=== PATIENT | male | born 2000 | race African-American/Black ===

== ENCOUNTER 2021-10-16 11:29 | Emergency (ER) | payer OTHER, BC, SELFPAY ==
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
[2021-10-16 11:33] VITALS: BP 118/73; PULSE 60; RESP 19; TEMP 36.6; O2SAT 99; BMI 22.9
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
[2021-10-16] MEDS: Acetaminophen 325 MG TABLET 975 MG PO (12:52)
[2021-10-16] MEDS: Fluorescein Sodium STRIP 1 STRIP EYE-BOTH (12:52)
[2021-10-16] MEDS: Tetracaine HCl/PF 0.5% Oph Sol 4 ML DROPS 2 DROP EYE-BOTH (12:52)
[2021-10-16] MEDS: Diphth,Pertus(ACell),Tet Adult 0.5 ML SYRINGE IM (12:53)
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
[2021-10-16] MEDS: Erythromycin Base 0.5% Oph Oin 1 GM TUBE 1 CM EYE-LEFT (14:09)
== END 2021-10-16 14:19 | disposition home or self-care (01) ==
PROVIDERS: Emergency Provider Emergency Medicine
DX: S05.02XA Injury of conjunctiva and corneal abrasion without foreign body, left eye, initial encounter (principal); S66.912A Strain of unspecified muscle, fascia and tendon at wrist and hand level, left hand, initial encounter; M54.2 Cervicalgia; G44.309 Post-traumatic headache, unspecified, not intractable; M79.602 Pain in left arm; M79.601 Pain in right arm; V43.52XA Car driver injured in collision with other type car in traffic accident, initial encounter; Y93.9 Activity, unspecified; Y92.410 Unspecified street and highway as the place of occurrence of the external cause; Y99.9 Unspecified external cause status; Z79.899 Other long term (current) drug therapy
CPT/HCPCS: 70450; 72125; 73090; 73110; 73130; 90715; 96372; 99284

== ENCOUNTER 2021-11-22 16:00 | Outpatient (RCR) | payer OTHER, MEDICAID, SELFPAY ==
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
--- NOTE | 2021-11-25 07:04 | MHC.PT.DC ---
[facility] [place] Office [place] Office [place] Office [address] [address] [phone] F: [phone] F: [phone] F: [phone] F: [phone] Physical Therapy Discharge Report Diagnosis: strain of muscle neck level Date of Surgery: Date of Evaluation: 10/21/21 Date of Discharge: 11/25/21 Treatments to Date: 6 Cancellations to Date: 0 No Shows to Date: 0 Discharge Status: Achieved Goals Improved Function Independent with HEP Discharge Summary: Pt reports compliance with HEP, improved function and feeling better overall. He reports feeling ready for d/c. D/c at this time. Electronically signed by: Paola Chen PT Please sign and return to therapist. Thank you for your referral.
== END 2021-11-25 07:04 | disposition home or self-care (01) ==
LOC: HO.PTCHIC 16:00
PROVIDERS: Visit Provider Physician Assistant Medical
DX: S16.1XXD Strain of muscle, fascia and tendon at neck level, subsequent encounter (principal)
CPT/HCPCS: 97014; 97110; 97140; 97161

== ENCOUNTER 2024-10-14 08:39 | Outpatient (REF) | payer OTHER, MEDICAID, SELFPAY ==
--- NOTE | ~2024-10-14 | XR_ITS ---
EXAMINATION: XR KNEE, RIGHT CLINICAL INFORMATION: M25.561 - Pain in right knee COMPARISON: None available. TECHNIQUE: Three views of the right knee. FINDINGS: No fracture or joint effusion. Alignment is anatomic. Joint spaces are maintained. No abnormal soft tissue calcification. XR/XR knee RT 3V IMPRESSION: Normal right knee. Electronically signed by: Wan Delgado MD 10/15/2024 03:24 PM [facility]
== END 2024-10-14 08:40 | disposition home or self-care (01) ==
LOC: HO.HOSX 08:39
PROVIDERS: Visit Provider Orthopaedic Surgery
DX: M25.561 Pain in right knee (principal)
CPT/HCPCS: 73562

== ENCOUNTER 2024-10-14 13:58 | Outpatient (AMB) | payer OTHER, MEDICAID, SELFPAY ==
[2024-10-14 14:03] VITALS: BMI 24.4
--- NOTE | 2024-10-14 14:03 | MHC.OFFVIS ---
Vital Signs 10/14/24 14:03 Height 6 ft 2 in Weight 190 lb BMI 24.4 Intake Visit Reasons: Right knee pain and giving way Intake Note: Desiree is a 24 year old male who presents with complaints of progressively worsening right knee pain and giving way. The patient states that he injured his right knee several months ago while sparring in martial arts. The patient twisted his knee and had acute onset of pain along the medial aspect of his knee. He states that his right knee will give out several times per day. He has done physical therapy which aggravated his pain. He has also tried Tylenol, muscle relaxants and anti-inflammatory medicines which gave him minimal relief. The patient states that at this point his right knee pain and mechanical symptoms are interfering with his activities of daily living and his ability to sleep well through the night. Allergies No Known Allergies Allergy (Verified 10/14/24 14:03) Medication List - Last Reconciled 10/14/24 by Luis Enrique John MD acetaminophen (Tylenol Extra Strength) 1,000 mg (2 x 500 mg) PO QID PRN cyclobenzaprine 5 mg PO Q8H PRN erythromycin 0.5 inches ophthalmic (eye) QID 7 days PFSH Social History Alcohol intake: unknown Patient Tobacco Use Status: Never used Tobacco Physical Exam Vital Signs: BMI result Body Mass Index 24.4 Const Other: Well-nourished well-developed very friendly male awake alert and oriented x3 in no acute distress Extrem Other: Bilateral lower extremity examination shows good capillary refill, no skin lesions noted, normal sensation light touch Right knee examination shows a minimal effusion, minimal crepitus with range of motion tenderness along his medial joint line, positive Sofya's test, no instability Results Reviewed Results Reviewed: Standing full weight-bearing x-rays of the patient's right knee show minimal joint space narrowing, no acute bony abnormalities Assessment & Plan Assessment & Plan (1) Tear of medial meniscus of right knee: Code(s): S83.241A - Other tear of medial meniscus, current injury, right knee, initial encounter Category: Medical Plan Mr. Riley presents with progressively worsening right knee pain and mechanical symptoms most likely due to a medial meniscus tear. Thus, I will send the patient for an MRI of his right knee for further evaluation. I will see him back once the MRI is completed to discuss the findings and treatment options. He will continue with his activity modifications in the meantime. I spent 21 minutes in reviewing the patient's records and imaging studies, seeing the patient and documenting in the medical record. Orders: Orders XR knee RT 3V Today M25.561 - Pain in right knee MR knee RT wo con Today S83.241A - Other tear of medial meniscus, current injury, right knee, initial encounter Coding Level of Care Code New Pt Level 3 (01872) Complex EM visit Add On G2211 Diagnoses Tear of medial meniscus of right knee S83.241A
--- OUTSIDE RECORDS SUMMARY | 2024-10-14 14:55 | XMS_ITS | Data Portability ---
Author Organization [facility] [id number] Address [address] [place] [address] Assessment No assessment recorded. Plan of Treatment Reminders Order Date Submit Date Provider Last Modified By Organization Details Last Modified Time Details Appointments None record ed. Lab None record ed. Referral None record ed. Procedures None record ed. Surgeries None record ed. Imaging None record ed. Medication Orders None record ed. Patient TargetsNo targets recorded. Patient InstructionsNo instructions recorded. Reason for Referral None Reported. Problems No Known Problems Procedures Surgical History Date Name Laterality Status Provider Name and Address Organization Details Recorded Time OC- Physical completed Leon Jeffries [employer] 04/17/2024 12:35:24 Imaging Results None recorded. Procedure Notes None recorded. Medical Equipment None Reported. Allergies No known drug allergies Medications Not known to be on any medication Vitals None Recorded Social History Question Answer Notes LastModified by Organizat ion Details LastModified Time Tobacco Smoking Status Never Smoker [facility] [employer] 04/17/2024 12:32:21 What Is Your Level Of Alcohol Consumption? Occasional Information not available 04/17/2024 Have You Had A Flu Shot This Season? No Information not available 04/17/2024 Do You Use Any Illicit Or Recreational Drugs? No Information not available 04/17/2024 Have You Recently Traveled Abroad? No Information not available 04/17/2024 Do You Or Have You Ever Used Any Other Forms Of Tobacco Or Nicotine? No Information not available 04/17/2024 Sex: Unknown Functional Status None recorded. Mental Status None recorded. Family History Relationship Description Onset Age of this Age Resolved Age Notes LastModified by Organization Details LastModified Time Father No current problems or disability Not available 04/17 12:31:57 Mother No current problems or disability Not available 04/17 12:31:57 Medical History No medical history recorded. Past Encounters Encounter ID Performer Location Encounter Start Date Encounter Closed Date Diagnosis/Indication Diagnosis SNOMED-CT Code Diagnosis ICD10 Code Diagnosis Note [id number] [address] [place] [address] 12/22/2019 14:32:09 12/22/2019 15:37:27 [id number] [address] [place] [address] 06/06/2019 19:54:32 06/06/2019 20:26:12 [id number] [address] [place] [address] 12/27/2021 12:47:58 12/27/2021 16:23:40 [id number] [address] [place] [address] 11/25/2019 15:33:01 11/25/2019 17:04:59 [id number] MESERET AMBRIZ NP [address] [place] [address] 04/17/2024 12:22:16 04/17/2024 13:15:18 Physical examination [id number] Z04.9 Health Concerns Section Related Observation LastModified by Organization Detai ls LastModified Time None Recorded Concern Status LastModified by Organization Details LastModified Time None Recorded Advance Directives Directive None Recorded Payers Encounter Date Sequence Insurance Name Policy Number Policy Reddy Covered Member ID Reddy Member ID Guarantor Name 04/17/2024 OC-PAY AT TIME OF SERVICE 2022 Desiree Villagran
== END 2024-10-14 14:27 | disposition home or self-care (01) ==
PROVIDERS: Visit Provider Orthopaedic Surgery
DX: S83.241A Other tear of medial meniscus, current injury, right knee, initial encounter (principal)
CPT/HCPCS: 99203; G2211

== ENCOUNTER → 2024-10-14 13:59 | Outpatient (BNV) | payer OTHER, MEDICAID, SELFPAY | PROVIDERS: Visit Provider Radiology Diagnostic Radiology | DX: M25.561 Pain in right knee (principal) | CPT/HCPCS: 73562 ==

== ENCOUNTER 2024-11-01 14:46 | Outpatient (REF) | payer OTHER, SELFPAY ==
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
== END 2024-11-01 14:47 | disposition home or self-care (01) ==
LOC: HO.MRI 14:46
PROVIDERS: Visit Provider Orthopaedic Surgery
DX: S83.241A Other tear of medial meniscus, current injury, right knee, initial encounter (principal)
CPT/HCPCS: 73721

== ENCOUNTER → 2024-11-01 14:52 | Outpatient (BNV) | payer OTHER, SELFPAY | PROVIDERS: Visit Provider Radiology Diagnostic Radiology | DX: M25.561 Pain in right knee (principal) | CPT/HCPCS: 73721 ==